=== PATIENT | male | born 1935 | race Caucasian/White ===

== ENCOUNTER 2016-09-15 09:04 | Outpatient (CLI) | payer MEDICARE, OTHER ==
[2016-09-15 09:28] LABS: Hemoglobin 13.8 g/dL (14.0-18.0); Mean Corpuscular HGB CONC 32.9 g/dL (32.0-36.0); Mean Corpuscular Hemoglobin 32.7 pg (27.0-31.0); Mean Corpuscular Volume 99.5 fl (80.0-94.0); Mean Platelet Volume 9.9 fL (7.4-10.4); Platelet Count 183 thou/uL (130-400); RBC Distribution Width 13.5 % (11.5-14.5); Red Blood Cell (RBC) Count 4.21 mill/uL (4.70-6.10); White Blood Cell (WBC) Count 10.2 thou/uL (4.8-10.8)
[2016-09-15 09:50] LABS: Anion Gap 17 mmol/L (10-20); BUN (Urea Nitrogen) 30 mg/dL (8.4-25.7); Calc. Creatinine Clearance 0 mL/min (70-130); Calcium 9.4 mg/dL (7.8-10.44); Carbon Dioxide 21 mmol/L (23-31); Cardiac Risk 2.4 (Less than 4.5); Chloride 105 mmol/L (98-107); Cholesterol 166 mg/dl (< 200 Desired); Estimated GFR-MDRD 52; Glucose 98 mg/dL (83-110); HDL Cholesterol 70 mg/dL (>60 Neg Risk); LDL Cholesterol, Calculated 80 mg/dL; Potassium 4.3 mmol/L (3.5-5.1); Sodium 139 mmol/L (136-145); Triglycerides 81 mg/dL (Less than 150)
== END 2016-09-15 09:05 | disposition home or self-care (01) ==
LOC: MADLAB 09:04
PROVIDERS: ATTEND Specialist
DX: E78.4 Other hyperlipidemia (principal); I10 Essential (primary) hypertension; I48.91 Unspecified atrial fibrillation
CPT/HCPCS: 36415; 80048; 80061; 84443; 85027

== ENCOUNTER 2016-10-21 13:26 | Emergency (ER) | payer MEDICARE, OTHER ==
[2016-10-21] MEDS ORDERED: Meclizine HCl 25 MG TAB ONE (13:58)
[2016-10-21] MEDS ORDERED: Ondansetron HCl/PF 4 MG/2 ML Vial ONE (13:58)
[2016-10-21 14:02] LABS: #Basophils 0.1 thou/uL (0.0-0.2); #Eosinphils 0.1 thou/uL (0.0-0.7); #Lymphocytes 2.2 thou/uL (1.20-3.40); #Monocytes 0.9 thou/uL (0.11-0.59); #Neutrophils 5.5 thou/uL (1.40-6.50); %Basophils 1.2 % (0.0-1.0); %Eosinophils 0.9 % (0.0-10.0); %Lymphocytes 24.6 % (21.0-51.0); %Monocytes 10.2 % (0.0-10.0); %Neutrophils 63.1 % (42.0-75.0); Hemoglobin 12.9 g/dL (14.0-18.0); Mean Corpuscular HGB CONC 33.4 g/dL (32.0-36.0); Mean Corpuscular Hemoglobin 33.3 pg (27.0-31.0); Mean Corpuscular Volume 99.8 fl (80.0-94.0); Platelet Count 178 thou/uL (130-400); RBC Distribution Width 13.1 % (11.5-14.5); Red Blood Cell (RBC) Count 3.87 mill/uL (4.70-6.10); White Blood Cell (WBC) Count 8.8 thou/uL (4.8-10.8)
[2016-10-21 14:07] LABS: INR-International Normal Ratio 1.5; PTT 28.1 SEC (22.9-36.1)
[2016-10-21 14:15] LABS: ALT (SGPT) 13 U/L (8-55); AST (SGOT) 15 U/L (5-34); Albumin 3.9 g/dL (3.4-4.8); Alkaline Phosphatase 71 U/L (40-150); Anion Gap 14 mmol/L (10-20); BUN (Urea Nitrogen) 25 mg/dL (8.4-25.7); Bilirubin, Total 0.4 mg/dL (0.2-1.2); Calc. Creatinine Clearance 0 mL/min (70-130); Calcium 9.2 mg/dL (7.8-10.44); Carbon Dioxide 23 mmol/L (23-31); Chloride 108 mmol/L (98-107); Estimated GFR-MDRD 58; Globulin 2.7 g/dL (2.4-3.5); Glucose 108 mg/dL (83-110); Magnesium 2.1 mg/dL (1.6-2.6); Potassium 3.7 mmol/L (3.5-5.1); Protein, Total 6.6 g/dL (5.8-8.1); Sodium 141 mmol/L (136-145)
[2016-10-21 14:19] LABS: CKMB 3.7 ng/mL (0-6.6)
--- NOTE | 2016-10-21 14:47 | RAD ---
PORTABLE UPRIGHT FRONTAL CHEST RADIOGRAPH: Date: 10-21-16 Comparison: None. History: Nausea, vomiting, and dizziness. FINDINGS: No pneumothorax or pleural fluid. No focal consolidation or alveolar edema. Lungs are mildly hyperin flated. There is atherosclerotic calcification in the aorta arch. IMPRESSION: No focal consolidation or alveolar edema. POS: [facility]
--- NOTE | 2016-10-21 14:59 | CT ---
NONCONTRAST HEAD CT: History: Dizziness x two hours. Vomiting, nausea. Comparison: None. Technique: Noncontrast head CT is performed from skull base to skull vertex. FINDINGS: No parenchymal hemorrhage. No extraaxial hematoma. No midline shift. Basilar cisterns are patent. Ag e appropriate atrophy. Cortical deluca white matter differentiation is preserved. Ventricles and sulci are patent and symmetric. Periventricular white matter, deep and subcortical white matter hypodensities due to chronic small v essel ischemic changes are noted. Remote lacunar infarct in the left thalamus. Intact calvarium. Atherosclerosis =====. Paranasal sinuses and mastoid air cells are adequately aera jaydon. IMPRESSION: 1. Age appropriate atrophy. 2. No acute intracranial process. 3. Chronic small vessel ischemic change of the white matter. POS: [facility]
[2016-10-21 15:45] LABS: Bacteria/HPF Rare-Few HPF (None Seen); Bilirubin Negative (Negative); Blood, Urine Negative (Negative); Clarity Hazy (Clear); Glucose, Urine (Dipstick) Negative (Negative); Leukocyte Negative (Negative); Nitrite Negative (Negative); Protein, Urine (Dipstick) Negative (Neg-Trace); RBC/HPF 0-3 HPF (0-3); Specific Gravity, Urine 1.015 (1.005-1.030); Squamous Epithelial 0-3 HPF (0-3); Urobilinogen 0.2 mg/dL (0.2-1.0); WBC/HPF 0-3 HPF (0-3); pH, Urine 6.5 (5.0-9.0)
== END 2016-10-21 16:15 | disposition home or self-care (01) ==
LOC: MADERS 13:26
DX: H83.09 Labyrinthitis, unspecified ear (principal); I48.91 Unspecified atrial fibrillation; Z87.891 Personal history of nicotine dependence; Z86.73 Personal history of transient ischemic attack (TIA), and cerebral infarction without residual deficits; Z79.01 Long term (current) use of anticoagulants; Z79.899 Other long term (current) drug therapy
CPT/HCPCS: 70450; 71010; 80053; 81001; 82553; 83735; 83880; 84484; 85025; 85610; 85730; 87086; 93005; 94760; 96374; J2405

== ENCOUNTER 2016-10-26 12:27 | Outpatient (CLI) | payer MEDICARE, OTHER ==
[2016-10-26 13:07] LABS: Anion Gap 10 mmol/L (10-20); BUN (Urea Nitrogen) 26 mg/dL (8.4-25.7); Calc. Creatinine Clearance 0 mL/min (70-130); Calcium 9.5 mg/dL (7.8-10.44); Carbon Dioxide 29 mmol/L (23-31); Chloride 107 mmol/L (98-107); Estimated GFR-MDRD 52; Glucose 87 mg/dL (83-110); Potassium 4.4 mmol/L (3.5-5.1); Sodium 142 mmol/L (136-145)
[2016-10-26 17:47] LABS: Iron 72 ug/dL (65-175)
== END 2016-10-26 12:28 | disposition home or self-care (01) ==
LOC: MADLAB 12:27
PROVIDERS: ATTEND Internal Medicine
DX: I10 Essential (primary) hypertension (principal); N28.9 Disorder of kidney and ureter, unspecified; N40.0 Benign prostatic hyperplasia without lower urinary tract symptoms; R53.83 Other fatigue; Z79.899 Other long term (current) drug therapy
CPT/HCPCS: 36415; 80048; 83540

== ENCOUNTER 2016-11-05 02:20 | Emergency (ER) | payer MEDICARE, OTHER ==
[2016-11-05] MEDS ORDERED: Sterile Water Irrigation 250 ML BOT ONE (13:04)
== END 2016-11-05 02:50 | disposition home or self-care (01) ==
LOC: MADERS 02:20
DX: S51.812A Laceration without foreign body of left forearm, initial encounter (principal); I48.91 Unspecified atrial fibrillation; Z86.73 Personal history of transient ischemic attack (TIA), and cerebral infarction without residual deficits; Z87.891 Personal history of nicotine dependence; Z79.899 Other long term (current) drug therapy; W01.0XXA Fall on same level from slipping, tripping and stumbling without subsequent striking against object, initial encounter
CPT/HCPCS: 99283

== ENCOUNTER 2017-02-21 17:00 | Emergency (ER) | payer MEDICARE, OTHER ==
--- NOTE | 2017-02-21 19:42 | RAD ---
TWO VIEWS LUMBAR SPINE: FINDINGS: AP, lateral, and coned down views of the lumbar spine obtained. There is atherosclerotic calcification of the abdominal aorta. Multilevel lumbar disc space height lo ss is seen. There is some decrease in the normal lordotic curvature of the lumbar spine. No evidence of acute fractures or significant bony lesions seen. Disc space height loss is seen at L5-S1. There i s anterolisthesis of L5 on S1, grade II. IMPRESSION: Grade II anterolisthesis of L5 on S1. There appears to be significant L5-S1 facet degenerative change s also present. There is some osteophytes in the L3-4 neural foramen. POS: [facility]
== END 2017-02-21 19:25 | disposition home or self-care (01) ==
LOC: MADERS 17:00
DX: M51.36 Other intervertebral disc degeneration, lumbar region (principal); M47.9 Spondylosis, unspecified; I48.91 Unspecified atrial fibrillation; Z86.73 Personal history of transient ischemic attack (TIA), and cerebral infarction without residual deficits; Z87.891 Personal history of nicotine dependence; Z79.01 Long term (current) use of anticoagulants; Z79.899 Other long term (current) drug therapy
CPT/HCPCS: 72100; 96372; J1040

== ENCOUNTER 2017-07-07 16:20 | Outpatient (CLI) | payer MEDICARE, OTHER ==
[2017-07-07 17:02] LABS: #Basophils 0.1 thou/uL (0.0-0.2); #Eosinphils 0.1 thou/uL (0.0-0.7); #Lymphocytes 1.8 thou/uL (1.20-3.40); #Monocytes 1.1 thou/uL (0.11-0.59); #Neutrophils 7.8 thou/uL (1.40-6.50); %Basophils 0.7 % (0.0-1.0); %Eosinophils 0.8 % (0.0-10.0); %Lymphocytes 16.3 % (21.0-51.0); %Monocytes 10.5 % (0.0-10.0); %Neutrophils 71.8 % (42.0-75.0); Hemoglobin 13.8 g/dL (14.0-18.0); Mean Corpuscular HGB CONC 32.9 g/dL (32.0-36.0); Mean Corpuscular Hemoglobin 32.4 pg (27.0-31.0); Mean Corpuscular Volume 98.5 fl (80.0-94.0); Mean Platelet Volume 6.5 fL (7.4-10.4); Platelet Count 217 thou/uL (130-400); RBC Distribution Width 14.5 % (11.5-14.5); Red Blood Cell (RBC) Count 4.25 mill/uL (4.70-6.10); White Blood Cell (WBC) Count 10.8 thou/uL (4.8-10.8)
[2017-07-07 17:26] LABS: ALT (SGPT) 13 U/L (8-55); AST (SGOT) 16 U/L (5-34); Albumin 3.5 g/dL (3.4-4.8); Alkaline Phosphatase 66 U/L (40-150); Anion Gap 16 mmol/L (10-20); BUN (Urea Nitrogen) 32 mg/dL (8.4-25.7); Bilirubin, Total 0.4 mg/dL (0.2-1.2); Calc. Creatinine Clearance 0 mL/min (70-130); Calcium 8.5 mg/dL (7.8-10.44); Carbon Dioxide 20 mmol/L (23-31); Chloride 107 mmol/L (98-107); Estimated GFR-MDRD 51; Globulin 2.2 g/dL (2.4-3.5); Glucose 60 mg/dL (83-110); Potassium 4.1 mmol/L (3.5-5.1); Protein, Total 5.7 g/dL (5.8-8.1); Sodium 139 mmol/L (136-145)
[2017-07-07 17:34] LABS: Thyroid Stimulating Hormone 2.3536 uIU/mL (0.35-4.94)
[2017-07-07 20:35] LABS: Free T4 (Free Thyroxine) 1.05 ng/dL (0.70-1.48)
[2017-07-07 21:45] LABS: Follow-up Chemistry Comp? YES; Follow-up Result - Chemistry REPORT FAXED
== END 2017-07-07 16:21 | disposition home or self-care (01) ==
LOC: MADLAB 16:20
PROVIDERS: ATTEND Internal Medicine
DX: N17.9 Acute kidney failure, unspecified (principal); N40.1 Benign prostatic hyperplasia with lower urinary tract symptoms; A41.9 Sepsis, unspecified organism
CPT/HCPCS: 80053; 84439; 84443; 85025

== ENCOUNTER 2017-08-05 12:12 | Emergency (ER) | payer MEDICARE, OTHER ==
[2017-08-05 13:17] LABS: Bilirubin Negative (Negative); Blood, Urine Large (Negative); Glucose, Urine (Dipstick) Negative (Negative); Leukocyte Large (Negative); Nitrite Positive (Negative); Protein, Urine (Dipstick) 100 mg/dL (Neg-Trace); Urobilinogen 0.2 mg/dL (0.2-1.0)
[2017-08-05 13:20] LABS: Bacteria/HPF 2+ HPF (None Seen); Clarity Cloudy (Clear); RBC/HPF 21-50 HPF (0-3)
[2017-08-05 13:21] LABS: Crystals/HPF 1+ AMORPH PHOS HPF (Negative)
--- NOTE | 2017-08-05 14:53 | CT ---
CT ABDOMEN AND PELVIS NONCONTARST: HISTORY: Flank pain. COMPARISON: 02/07/17. FINDINGS: Each renal collecting system is decompressed. Multiple stones are present bilaterally. Extensive mo tion artifact limits detail. Calcifications are estimated to be up to 1.0 cm at the inferior pole of each kidney. Mild distention of the left ureter is again demonstrated to the level of the UVJ witho ut stone evident. Right ureter is decompressed. Multiple stones are apparent within the urinary nomi dder, again detail obscured by motion. They measure up to 1.2 cm greatest diameter. Urinary bladder is decompressed by a Flowers catheter. Lack of contrast limits evaluation for other abnormalities. There is prominent calcification through out the arterial structures. Fat protrudes into a right inguinal hernia that does not contain bowel. IMPRESSION: 1. Large nonobstructing bilateral renal calculi. 2. Urinary bladder calculi. Flowers catheter decompresses the bladder. 3. Persistent distention of the left ureter without cause evident. Possibly related to reflux. 4. Atherosclerosis. 5. Right inguinal hernia containing fat but no bowel. POS: [facility]
== END 2017-08-05 14:43 | disposition home or self-care (01) ==
LOC: MADERS 12:12
DX: N39.0 Urinary tract infection, site not specified (principal); I48.91 Unspecified atrial fibrillation; N40.0 Benign prostatic hyperplasia without lower urinary tract symptoms; F32.9 Major depressive disorder, single episode, unspecified; Z86.73 Personal history of transient ischemic attack (TIA), and cerebral infarction without residual deficits; Z87.891 Personal history of nicotine dependence; Z79.899 Other long term (current) drug therapy
CPT/HCPCS: 74176; 81003; 81015; 87086